=== PATIENT | male | born 1945 | race Caucasian/White ===

== ENCOUNTER 2016-06-11 10:44 | Emergency (ER) | payer MEDICARE, OTHER ==
[~2016-06-11] VITALS: Ht 188 cm; Wt 109.1 kg
[~2016-06-11 10:44] MED LIST: ASPI325T32 PO; BICA50TA2 PO; CALC600T12 PO; TURM500C7 PO; UBID1CAP52 PO; WARF10TA PO; WARF5TAB7 PO
[2016-06-11 10:48] VITALS: BP 147/101; PULSE 84; RESP 16; O2SAT 96
[2016-06-11] MEDS ORDERED: CHOL500050 PO (10:54)
--- NOTE | 2016-06-11 10:57 | ED.REPORT ---
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 He has also noticed purple discoloration of his right foot. His symptoms improved with elevation. His current symptoms are similar to when he had a popliteal aneurysm. He denies new numbness or tingling. Nursing Notes Stated Complaint: HEEL PAIN/POPLITEAL ANEURYSM Chief Complaint: Extremity Trauma Nursing Notes Reviewed: Yes Allergies: Coded Allergies: gabapentin (Verified Allergy, Unknown, 07/11/14) morphine (Verified Allergy, Unknown, 07/11/14) valdecoxib (Unverified Allergy, Unknown, 06/11/16) ENTERED FROM UNCODED ALLERGIES Uncoded Allergies: BEXTRA (Allergy, Unknown, 03/21/08) Scheduled Aspirin (Aspirin) 325 Mg Tablet.dr 325 MG PO DAILY Atorvastatin (Lipitor) 80 Mg Tablet 80 MG PO DAILY Bicalutamide (Casodex) 50 Mg Tablet 100 MG PO DAILY Calcium Carbonate (Calcium) 600 Mg Tablet 600 MG PO BID Cholecalciferol (Vitamin D3) (Vitamin D3) 50,000 Unit Capsule 50,000 UNIT PO WEEKLY Turmeric Root Extract (Turmeric) 500 Mg Capsule 500 MG PO BID Ubidecarenone/Vit E Acetate (Co Q-10 100 mg Softgel) 1 Each Capsule 1 EACH PO DAILY Warfarin Sodium (Coumadin) 10 Mg Tablet 7.5 MG PO DIRECTED Wed SAT Warfarin Sodium (Warfarin Sodium) 5 Mg Tablet 5 MG PO 5 days a week General Time Seen by MD: 10:55 Chief Complaint Foot injury right Hx Obtained From: Patient, Spouse Arrived By: Walk-in Onset Occurred: Yesterday Symptom Duration: Since onset Location: : Foot right Quality: Painful Severity: Current: Moderate Severity: Maximum: Moderate Additional Notes: +discoloration of right foot Pertinent Negative: Pt denies other symptoms Recent Healthcare: No recent doctor visit, No recent hospitalization Similar Sx Previous: Yes Past Medical History Past Medical History Prostate cancer Popliteal artery anuerysm s/p stent Past Surgical History Lymph node removal Popliteal aneurysm s/p stent R popliteal repair x2 Reports: Cholecystectomy Family History Noncontributory Smoking History Never Smoker Social History Alcohol Use: Denies alcohol use Drug Use: Denies drug use Other Social History: Good social support, , Local resident Ambulatory Status Independent Review of Systems Musculoskeletal: Reports: Extremity pain (right heel) Skin: Reports Bruising Neurologic: Denies: Numbness Complete sys rev & neg: except as marked. Physical Exam Initial Vital Signs Vital Signs (First) Date Time Temp Pulse Resp B/P Pulse Ox O2 Delivery O2 Flow Rate FiO2 06/11/16 10:48 35.6 84 16 147/101 96 Room Air Initial VS: Reviewed Head / Eyes: Atraumatic, Normocephalic, PERRL ENT: Mucous membranes moist, Conjunctiva normal, No scleral icterus Neck: Supple, Non-tender, Full range of motion Respiratory: Breath sounds normal, Clear to auscultation, No respiratory distress Cardiovascular: Regular rate & rhythm, Heart sounds normal, Intact distal pulses Abdomen / GI: Soft, Non-tender, No guarding, No rebound, No distention Lymphatic: No lymphadenopathy Upper Extremities: Vascular intact, Neuro intact, No swelling, No tenderness Skin: Warm, Dry, No cyanosis Neurologic: Alert, Oriented, Nonfocal Psychiatric: Mood/affect normal, Behavior normal, Normal thought content Lower Extremity / Pelvis / MS: Neurologic intact, Vascular intact Ankle / Foot: Neurologic intact, Vascular intact Unable to palpate the DP pulse on the right. I was able to get Doppler pulses DP and PT on the left, and DP on the right. Unable to get right PT pulse. He has a little bit of redness over his right heel. 3 second capillary refill to his right lower extremity. Right foot is mildly erythematous. Right foot is mildly cool to the touch which is symmetrical to the left foot. General/Constitutional: Awake, Alert, Cooperative Interpretation & Diagnostics Lower extremity duplex: Normal caliber vessel up at the proximal femoral artery but just beginning in the middle third of the vessel it is a pinhole. You can follow the pinhole down to the aneurysm then there is no flow. Re-Eval/Medical Decision Med Decision/Clinical Course 71-year-old male with history of bilateral popliteal aneurysm status post graft repair with multiple revisions presenting with right heel pain. He reports similar pain when his right popliteal aneurysm was diagnosed many years ago. Last revised 5 years ago. No signs of acute limb ischemia. Right lower extremity arterial Doppler ultrasound shows no flow beyond distal femoral into the popliteal graft. There is trickle flow in the right posterior tibialis. He has Doppler pulses in the right dorsalis pedis as well as left dorsalis pedis and left posterior tibialis. He has no signs of acute limb ischemia. I discussed with his vascular surgeon who recommends continuing his Coumadin and aspirin and he will set up follow-up with him in clinic for repeat ultrasound and plan for surgery. He is advised to go to the ER immediately should he develop any sign symptoms acute limb ischemia which were splinted him in great detail. He has verbalized understanding. Discharged home with follow-up with vascular surgery. Source of Hx: Old records, Family Re-Evaluation/Progress : Time of Eval: 13:57 Re-Evaluation/Progress Note: Rechecked the patient. Discussed results, diagnosis, and plan for followup appointment. All questions were addressed. Consultation #1: Call Returned at: 13:54 Note: Spoke with the on-call vascular surgeon from [facility] who has previously seen the patient. Will see the patient in office. Consultation #2: Call Returned at: 14:42 Note: Spoke with the vascular surgeon again to clarify if he patient should be started on Plavix when he is already on Coumadin. Counseled Regarding: Diagnosis, Lab results, Need for follow-up, When/why to return to ED Discharge & Departure Impression: Primary Impression: Femoral-popliteal bypass graft occlusion, right Encounter type: initial encounter Qualified Code: T82.898A - Other specified complication of vascular prosthetic devices, implants and grafts, initial encounter Disposition: Home Discharge Condition All VS Reviewed: Yes Condition: Stable Additional Instructions: Thank you for entrusting us with your care today. You will need to followup with a vascular surgeon. We have scheduled you an appointment with Dr. Mata at [facility] on July 10 at 0830 AM. Please arrive early to check in. The office number is [phone] if you have any questions. Imaging will call you to schedule a scan prior to appointment date. Continue to take your Coumadin as prescribed as well as the statin and 81 mg aspirin we have prescribed you today. Please return to the emergency department immediately for any signs of ischemia: increased pain, weakness, numbness, tingling, lack of pulses, pallor, coldness, or any other new or concerning symptoms. Referrals: Neno Mccrary MD (PCP) Scribe Attestation Portions of this note were transcribed by Guera Oliveira. I, Dr. Peres personally performed the history, physical exam and medical decision-making; I reviewed and confirmed the accuracy of the information in the transcribed note. Signed by: Nelida Enriquez, 06/11/2016 at 1500. copies to: Neno Mccrary MD, Ben M MD Jun 11, 2016 10:57 Guera Oliveira Jun 11, 2016 11:03
[2016-06-11] MEDS ORDERED: Heparin 5,000 Unit/mL Inj IVPUSH ONE (13:50)
[2016-06-11] MEDS ORDERED: Heparin 25K Unit/500mL 0.45 NS 25,000 UNIT in IV Premix 1 EACH IV ONE (13:50)
[2016-06-11 14:09] VITALS: BP 167/94; PULSE 97; RESP 15; O2SAT 97
[2016-06-11] MEDS ORDERED: ATOR80TA PO (14:12)
[2016-06-11 14:53] VITALS: BP 167/94; PULSE 97; RESP 15; O2SAT 97
--- NOTE | 2016-06-11 15:12 | DRSVH ---
PROCEDURE: US DUPLEX DOPPLER UNILATERAL LEG ARTERIES, RIGHT INDICATIONS: h/o R popliteal artery aneurysm s/p graft foot quin TECHNIQUE: Color and pulse Doppler interrogation was performed of the right lower extremity arterial system, wit h image documentation. COMPARISON: None. FINDINGS: Vascular Ultrasound Procedure Report Findings(Artery of Lower Extremity)(Right) Common Femoral Artery(Distal) Velocity: 40.10 cm/s, 51.20 cm/s Profunda Femoris Artery(Proximal) Velocity: 34 cm/s, 82.40 cm/s Superficial Femoral Artery(Proximal) Velocity: 17.60 cm/s, 15.70 cm/s Superficial Femoral Artery(Mid-longitudinal) Velocity: Occluded. Superficial Femoral Artery(Distal) Velocity: Occluded. Popliteal Artery(Mid-longitudinal) Velocity: Occluded. Posterior Tibial Artery(Distal) Velocity: 9.40 cm/s, 8 cm/s Dorsalis Pedis Artery(Distal) Velocity: 18 cm/s Greyscale findings: Severe scattered plaque in popliteal artery aneurysm measuring up to 2.2 cm IMPRESSION: 1. Occlusion of the right superficial femoral artery from the mid superficial femoral artery level t o the popliteal artery. Of note, no bypass graft is seen sonographically. 2. Popliteal artery aneurysm measuring up to 2.2 cm. Dictated by: Larry Mcdermott RRA Interpreted: Sammi Longo MD on 06/11/2016 at 15:09 Transcribed by: RAISA on 06/11/2016 at 15:12 Approved by: Sammi Longo MD, PhD on 06/11/2016 at 16:35
== END 2016-06-11 14:53 | disposition home or self-care (01) ==
LOC: SED 10:44
DX: T82.898A Other specified complication of vascular prosthetic devices, implants and grafts, initial encounter (principal); Y93.89 Activity, other specified; Y92.89 Other specified places as the place of occurrence of the external cause; Y99.8 Other external cause status; Z79.82 Long term (current) use of aspirin; Z79.01 Long term (current) use of anticoagulants; Z88.5 Allergy status to narcotic agent; Z88.8 Allergy status to other drugs, medicaments and biological substances